=== PATIENT | female | born 1970 | race Caucasian/White ===

== ENCOUNTER → 2024-10-13 | Outpatient (CLI) | payer BC, SELFPAY ==
[2024-10-13 08:41] LABS: Glucose Estimated Average 111 mg/dL (80-131); Hemoglobin A1C 5.5 % Hgb (4.8-6.0)
[2024-10-13 08:49] LABS: Cardiac Risk Estimate 5.9 RATIO (3.7-5.6); Cholesterol 309 mg/dL (132-200); HDL Cholesterol 52 mg/dL (40-60); LDL Cholesterol,Calculated 221 mg/dL (0-130); Thyroid Stimulating Hormone 1.23 uIU/mL (0.55-4.78); Triglycerides 181 mg/dL (30-150)
[2024-10-13 09:12] LABS: Urea Breath Test Negative (Negative)
[2024-10-13 09:24] LABS: Follicle Stimulating Hormone 55.31 mIU/mL (See Note); Hepatitis C Antibody Non Reactive (Non React)
[2024-10-25 06:49] LABS: Estradiol, Ultrasensitive* 3 pg/mL; Luteinizing Hormone* 37.5 mIU/mL; Progesterone,LC/MS* <0.1 ng/mL
== END | disposition home or self-care (01) ==
PROVIDERS: PCP Family Medicine
DX: Z00.01 Encounter for general adult medical examination with abnormal findings (principal); N95.9 Unspecified menopausal and perimenopausal disorder; Z11.59 Encounter for screening for other viral diseases; K29.70 Gastritis, unspecified, without bleeding
CPT/HCPCS: 36415; 80061; 82670; 83001; 83002; 83013; 83014; 83036; 84144; 84443; 86803

== ENCOUNTER → 2024-11-30 | Outpatient (CLI) | payer BC, SELFPAY ==
[2024-11-30 09:10] LABS: Cardiac Risk Estimate 3.6 RATIO (3.7-5.6); Cholesterol 203 mg/dL (132-200); HDL Cholesterol 57 mg/dL (40-60); LDL Cholesterol,Calculated 127 mg/dL (0-130); Triglycerides 95 mg/dL (30-150)
[2024-12-07 06:58] LABS: Direct LDL* 141 mg/dL (<100)
== END | disposition home or self-care (01) ==
PROVIDERS: PCP Registered Nurse Community Health; Referring Provider Registered Nurse Community Health; Visit Provider Registered Nurse Community Health
DX: E78.2 Mixed hyperlipidemia (principal)
CPT/HCPCS: 36415; 80061; 83721

== ENCOUNTER → 2025-03-28 | Outpatient (CLI) | payer OTHER, SELFPAY ==
[2025-03-28 09:10] LABS: Cardiac Risk Estimate 5.1 RATIO (3.7-5.6); Cholesterol 283 mg/dL (132-200); HDL Cholesterol 56 mg/dL (40-60); LDL Cholesterol,Calculated 203 mg/dL (0-130); Triglycerides 120 mg/dL (30-150)
== END | disposition home or self-care (01) ==
LOC: COPL 07:08
PROVIDERS: PCP Nurse Practitioner Family; Referring Provider Nurse Practitioner Family; Visit Provider Nurse Practitioner Family
DX: E78.5 Hyperlipidemia, unspecified (principal)
CPT/HCPCS: 36415; 80061